=== PATIENT | female | born 1960 | race Caucasian/White ===

== ENCOUNTER 2021-06-03 08:48 | Emergency (ER) | payer OTHER ==
[~2021-06-03] VITALS: Ht 157.5 cm; Wt 81.6 kg
[2021-06-03] MEDS ORDERED: IBUPROFEN 600 MG TAB PO STA (09:38)
[2021-06-03] MEDS ORDERED: IBUPROFEN 600 MG TAB ONE (10:02)
[2021-06-03] MEDS ORDERED: IBUPROFEN600 MG PO (10:22)
== END 2021-06-03 10:33 | disposition home or self-care (01) ==
LOC: FSED 09:30
DX: S93.402A Sprain of unspecified ligament of left ankle, initial encounter (principal); W01.0XXA Fall on same level from slipping, tripping and stumbling without subsequent striking against object, initial encounter; Y93.01 Activity, walking, marching and hiking; Y99.0 Civilian activity done for income or pay; J45.909 Unspecified asthma, uncomplicated
CPT/HCPCS: 99283

== ENCOUNTER → 2021-10-11 | Day surgery (SDC) | payer OTHER ==
[~2021-10-11] MED LIST: BUPIVACAINE 0.25% 30ML SDV ONE; DEXAMETHASONE SOD PHOS INJ 4 MG/ML SDV ONE; FENTANYL CITRATE/PF 100MCG/2 ML INJ ONE; IBUPROFEN600 MG PO; KETOROLAC TROMETHAMINE 30 MG/ML VIAL ONE; LIDOCAINE 1% W/EPINEPHRINE 20 ML VIAL ONE; LIDOCAINE HCL 2% LOCAL INJ 5 ML SDV VIAL INJ ONE; MEPERIDINE HCL INJ 25 MG/ML VIAL ONE; METOCLOPRAMIDE HCL 10 MG/2ML VIAL ONE; MIDAZOLAM HCL 2 MG/2 ML VIAL ONE; ONDANSETRON HCL INJ 2MG/ML 2ML 2 MG/ML VIAL ONE; POVIDONE IODINE 0.05% 0.05 % ML PO ONE; PROPOFOL IV EMULSION 10 MG/ML 20 ML VIAL ONE; ROPIVACAINE 0.5% 5 MG/ML 30 ML SDV ONE; ULTRAM50 MG PO
[2021-10-11 12:28] VITALS: BP 140/79
== END | disposition home or self-care (01) ==
LOC: OR 06:48
PROVIDERS: ATTEND Orthopaedic Surgery
DX: S83.231A Complex tear of medial meniscus, current injury, right knee, initial encounter (principal); S83.281A Other tear of lateral meniscus, current injury, right knee, initial encounter; M22.41 Chondromalacia patellae, right knee; M67.51 Plica syndrome, right knee; M23.41 Loose body in knee, right knee; J45.909 Unspecified asthma, uncomplicated; R06.83 Snoring; K21.9 Gastro-esophageal reflux disease without esophagitis; W19.XXXA Unspecified fall, initial encounter; Z01.810 Encounter for preprocedural cardiovascular examination; Z01.812 Encounter for preprocedural laboratory examination; Z20.822 Contact with and (suspected) exposure to COVID-19; Z79.899 Other long term (current) drug therapy; Z68.34 Body mass index [BMI] 34.0-34.9, adult
CPT/HCPCS: 29880; 93005; C1713; J0690; J1100; J1885; J2001; J2175; J2250; J2405; J2704; J2765; J3010; U0002; J2795